=== PATIENT | female | born 1975 | race Caucasian/White ===

== ENCOUNTER → 2024-04-10 | Outpatient (CLI) | payer OTHER ==
[2024-04-10 14:23] LABS: BASO % 0.7 % (0.0-1.0); EOS # 0.1 10^3/uL (0.0-0.5); EOS % 2.1 % (0.0-3.0); HEMOGLOBIN 13.7 g/dl (12.0-15.5); LYMPH # 2.1 10^3/uL (1.5-5.0); LYMPH % 36.1 % (24.0-44.0); MEAN CORPUSCULAR HEMOGLOBIN 30.6 pg (27.0-33.0); MEAN CORPUSCULAR HGB CONC 32.6 g/dl (32.0-36.5); MONO # 0.4 10^3/uL (0.0-0.8); NEUTROPHILS # 3.1 10^3/uL (1.5-8.5); NEUTROPHILS % 53.9 % (36.0-66.0); PLATELET COUNT, AUTOMATED 313 10^3/uL (150-450); RED BLOOD COUNT 4.47 10^6/uL (4.00-5.40); WHITE BLOOD COUNT 5.8 10^3/uL (4.0-10.0)
[2024-04-10 14:28] LABS: ERYTHROCYTE SEDIMENTATION RATE 13 mm/hr (0-20)
[2024-04-10 14:49] LABS: COMPLEMENT C4 25.3 MG/DL (12-36); RHEUMATOID FACTOR QUANT < 3.5 IU/ML (<14)
[2024-04-10 14:50] LABS: THYROID STIMULATING HORMONE 1.784 uIU/ML (0.55-4.78); THYROXINE (T4) 7.5 UG/DL (4.5-10.9)
[2024-04-10 14:52] LABS: THYROID PEROXIDASE ANTIBODY 43 U/ML (<60.0); TOTAL T3 117.8 NG/DL (60.0-181.0)
[2024-04-13 15:06] LABS: THRYOGLOBULIN ANTIBODIES (ATA) < 1 IU/mL (< or = 1); THYROGLOBULIN QUANTITATIVE 6.2 ng/mL (2.8-40.9)
[2024-04-13 15:22] LABS: ANA SCREEN, IFA NEGATIVE (NEGATIVE)
== END ==
LOC: M LAB 13:05
PROVIDERS: ATTEND Allergy & Immunology Allergy
DX: L50.1 Idiopathic urticaria (principal); T78.04XA Anaphylactic reaction due to fruits and vegetables, initial encounter

== ENCOUNTER 2024-09-08 06:14 | Day surgery (SDC) | payer OTHER ==
[~2024-09-08] VITALS: Ht 170.2 cm; Wt 77.3 kg
[~2024-09-08 06:14] MED LIST: AMPH1CAP15 PO; CETI-24 PO; FAMO40TA3 PO; FREM225A; GABA-1171 PO; HYDR12.55 PO; LEVOTAB10 PO; NAPR-1405 PO; OMEP40CA5 PO; ONDA-282; RIZA5TAB52 PO; VALA500T5 PO; VERA180T42 PO; ZONI50CA11 PO
[2024-09-08] MEDS ORDERED: SENN-187 PO (06:58)
[2024-09-08] MEDS ORDERED: ONDANSETRON 4MG 2ML VIAL As Ordered ONE (07:00)
[2024-09-08] MEDS ORDERED: ACETAMINOPHEN 1000MG/100ML IV BAG As Ordered ONE (07:00)
[2024-09-08] MEDS ORDERED: SUGAMMADEX SODIUM 500 MG/5 ML VIAL (BRIDION) As Ordered ONE (07:00)
[2024-09-08] MEDS ORDERED: ROCURONIUM BROMIDE 50MG/5ML VIAL As Ordered ONE (07:00)
[2024-09-08] MEDS ORDERED: LIDOCAINE 2% 100MG/5ML SDV (FOR ANES.) As Ordered ONE (07:00)
[2024-09-08] MEDS ORDERED: KETOROLAC 60MG 2ML VIAL As Ordered ONE (07:00)
[2024-09-08] MEDS ORDERED: propofoL 200 MG/20 ML VIAL As Ordered ONE (07:00)
[2024-09-08] MEDS ORDERED: HYDROmorphone HCL 2MG/ML 1ML VIAL As Ordered ONE (07:01)
[2024-09-08] MEDS ORDERED: MIDAZOLAM INJ 2MG/2ML VIAL As Ordered ONE (07:01)
[2024-09-08] MEDS ORDERED: fentaNYL 100 MCG/2 ML INJECTION As Ordered ONE (07:01)
[2024-09-08] MEDS: SCOPOLAMINE 1MG TRANSDERMAL PATCH TOP ONE (07:13)
[2024-09-08] MEDS: ACETAMINOPHEN 500 MG TAB PO ONE (07:14)
[2024-09-08 07:15] LABS: HEMATOCRIT 39.3 % (36.0-47.0); HEMOGLOBIN 13.3 g/dl (12.0-15.5); MEAN CORPUSCULAR HEMOGLOBIN 30.6 pg (27.0-33.0); MEAN CORPUSCULAR HGB CONC 33.8 g/dl (32.0-36.5); MEAN CORPUSCULAR VOLUME 90.3 fl (80.0-96.0); PLATELET COUNT, AUTOMATED 360 10^3/uL (150-450); RED BLOOD COUNT 4.35 10^6/uL (4.00-5.40); WHITE BLOOD COUNT 6.9 10^3/uL (4.0-10.0)
[2024-09-08] MEDS: ceFAZolin SOD 2 GM in IV 1 EA IV ONE (07:26)
[2024-09-08] MEDS: NS 1,000 ML IV SCH (07:29)
[2024-09-08] MEDS: metroNIDAZOLE 500 MG in IV 1 EA IV ONE (07:35)
[2024-09-08 07:49] LABS: BLOOD UREA NITROGEN 13 MG/DL (9-23); CALCIUM LEVEL 9.4 MG/DL (8.5-10.1); CARBON DIOXIDE LEVEL 25 MMOL/L (20-31); CHLORIDE LEVEL 105 MMOL/L (98-107); CREATININE FOR GFR 0.83 MG/DL (0.55-1.30); GLOMERULAR FILTRATION RATE > 60.0 (>58); GLUCOSE, FASTING 91 MG/DL (60-100); POTASSIUM SERUM 3.5 MMOL/L (3.5-5.1); SODIUM LEVEL 138 MMOL/L (136-145)
[2024-09-08] MEDS ORDERED: GLYCOPYRROLATE INJ 0.2 MG/ML 2 ML VIAL As Ordered ONE (09:13)
[2024-09-08] MEDS: FLUORESCEIN 10% (100MG/ML) 5ML VIAL As Ordered ONE (09:48)
[2024-09-08] MEDS ORDERED: NS 1,000 ML IV SCH (10:15)
[2024-09-08] MEDS ORDERED: fentaNYL 100 MCG/2 ML INJECTION IV PRN (10:15)
[2024-09-08] MEDS: oxyCODONE 5MG TAB PO PRN (10:54)
[2024-09-08] MEDS: HYDROMORPHONE HCL 0.5 MG/ 0.5 ML SYRINGE IV PRN (10:54)
[2024-09-08] MEDS: ONDANSETRON 4MG 2ML VIAL IV PRN (10:55)
[2024-09-08] MEDS: MEPERIDINE 25 MG/ML 1ML VIAL IV PRN (11:26)
[2024-09-08 12:02] VITALS: BP 130/79; TEMP 97.6; O2SAT 97
== END 2024-09-08 12:20 | disposition home or self-care (01) ==
LOC: M SDC 06:14
PROVIDERS: ATTEND Student in an Organized Health Care Education/Training Program
DX: N93.9 Abnormal uterine and vaginal bleeding, unspecified (principal); N80.03 Adenomyosis of the uterus; N84.0 Polyp of corpus uteri; N83.8 Other noninflammatory disorders of ovary, fallopian tube and broad ligament; N80.359 Endometriosis of pelvic sidewall, unspecified side, unspecified depth; N80.329 Endometriosis of the posterior cul-de-sac, unspecified depth; N83.299 Other ovarian cyst, unspecified side; I10 Essential (primary) hypertension; J45.909 Unspecified asthma, uncomplicated; K21.9 Gastro-esophageal reflux disease without esophagitis; Z79.899 Other long term (current) drug therapy; Z88.8 Allergy status to other drugs, medicaments and biological substances; G43.909 Migraine, unspecified, not intractable, without status migrainosus
CPT/HCPCS: 36415; 58571; 80048; 81001; 81025; 85027; 86850; 86900; 86901; 87086; 88307; J0665; J0690; J1100; J1171; J1596; J1836; J1885; J2175; J2250; J2405; J3010